=== PATIENT | male | born 1985 | race Caucasian/White ===

== ENCOUNTER 2017-02-28 04:15 | Emergency (ER) | payer OTHER ==
--- NOTE | ~2017-02-28 | CT4 ---
[facility] A Service of [facility] RADIOLOGY TEXT RESULTS PATIENT: ANNAMARIE BHARDWAJ LOCATION: SED : 87 UNIT #: [id number] AGE: [address]: King Mackey MD SEX: M ORDER DR: [id number] [place] [id number] E MR#: [id number] Acc #: [id number] NAME: ANNAMARIE BHARDWAJ : 1985 SEX: M STUDY DATE/TIME: 02/28/2017 6:32 UNIT: SED ROOM: STUDY DESCRIPTION: CT Abd and Pelv Wo Cont Attending Physician: King Mackey M.D. Ordering Physician: King Mackey M.D. Primary Care Physician: Tamiko Beavers M.D. MEDICAL IMAGING REPORT This report is preliminary unless electronic signature is present. EXAM C abdomen and pelvis without contrast HISTORY Nausea, vomiting and diarrhea since 2300 last night. No cancer history. History of ulcers. TECHNIQUE This CT examination was performed with one or more of the following radiation dose reduction techniques: automatic exposure control, adjustment of mA and/or kV according to patient size, and iterative reconstruction. COMMENT CT of the abdomen and pelvis performed axial plane without contrast followed by sagittal and coronal reconstructed images. There is comparison study from 05/03/2012. On review of prior study, patient has a contrast allergy. There is no abnormality at lung bases. Spleen size is borderline enlarged. Also probably some mild fatty infiltration of the liver diffusely. The noncontrast pancreas is unremarkable. Gallbladder, adrenal glands unremarkable. Mild perinephric stranding bilaterally. No intrarenal calculi. No hydronephrosis. Abdominal aorta unremarkable on noncontrast exam without evidence for aneurysm. Study does not evaluate for dissection. CT PELVIS: The urinary bladder is unremarkable. The appendix is radiographically normal. There is nothing to suggest bowel obstruction. There is no free intraperitoneal air. There is no drainable fluid collection suspected. [facility] A Service of [facility] RADIOLOGY TEXT RESULTS PATIENT: ANNAMARIE BHARDWAJ LOCATION: SED : 86 UNIT #: [id number] AGE: [address]: King Mackey MD SEX: M ORDER DR: IMPRESSION 1. Study limited by the lack of IV contrast media but the patient apparently has a contrast allergy. 2. Spleen size is borderline. Suspect mild fatty infiltration of the liver. Please correlate further with laboratory findings. 3. No evidence for bowel obstruction, free air or drainable fluid collection. The appendix is radiographically normal. STAT * RESULT Dictated by... Marzena Wray M.D. THIS IS AN ELECTRONICALLY VERIFIED REPORT Marzena Wray M.D. at 02/28/2017 8:35 AM IL[facility]/roxi TD: 02/28/2017 07:11 JOB #: [id number] MEDICAL IMAGING REPORT Page 1 of 1
[~2017-02-28 04:15] MED LIST: ALLEGRA180 MG PO; BENADRYL PO; BENADRYL25 M3 PO; BENADRYL25 MG; CLARITIN10 MG PO; DICYCLOMINE HCL20 MG PO; FAMOTIDINE PO; FISH OIL 1,0001 CAP PO; FLONASE 0.05% N16 G1; L-LYSINE500 M1 PO; LANSOPRAZOLE15 MG PO; LANSOPRAZOLE30 M1 PO; MED FOR ANXIETY; MELATONIN5 M1; MULTI VITAMIN1 EACH PO; MULTIVITAMIN1 UDCAP PO; NASONEX17 GM; OMEPRAZOLE20 M2; PHENERGAN PO; PREDNISONE; SLEEP MD; VOLTAREN75 MG PO
[2017-02-28 05:24] LABS: BASOPHIL# 0.1 X10e3 (0-0.3); BASOPHIL% 0.5 % (0-2.5); EOSINOPHIL# 0.1 X10e3 (0-0.7); EOSINOPHIL% 0.5 % (0.0-7.0); HEMATOCRIT 44.6 % (38.0-50.0); HEMOGLOBIN 15.2 gm/dL (13.0-16.0); LYMPHOCYTE# 1.3 X10e3 (1.0-3.5); LYMPHOCYTE% 6.1 % (17.0-45.0); MEAN CELL VOLUME 83.3 FL (83-96); MEAN CORPUSCULAR HEMOGLOBIN 28.4 PG (28-34); MEAN PLATELET VOLUME 8.4 FL (6.5-11.5); MONOCYTE# 1.1 X10e3 (0-1.0); MONOCYTE% 4.8 % (3.0-12.0); NEUTROPHIL# 19.3 X10e3 (1.5-7.1); NEUTROPHIL% 88.1 % (40-75); PLATELET COUNT 240 X10e3 (140-420); RED BLOOD COUNT 5.36 X10e (3.90-5.60); RED CELL DISTRIBUTION WIDTH 12.6 % (11.0-15.5); WHITE BLOOD COUNT 21.9 X10e3 (4.0-10.5)
[2017-02-28 05:28] LABS: DIFF IND YES
[2017-02-28 05:29] LABS: ALBUMIN SERUM 4.5 g/dL (3.5-5.0); BILIRUBIN, DIRECT 0.1 mg/dL (0.0-0.2); BILIRUBIN,INDIRECT 0.4 mg/dL (0.0-0.9); BILIRUBIN,TOTAL 0.5 mg/dL (0.2-2.0); CALCIUM SERUM 9.5 mg/dL (8.4-10.2); GLOM FILT RATE Estimated 100.6 mL/min (>60); POTASSIUM 3.8 mmol/L (3.5-5.1); PROTEIN TOTAL SERUM 7.7 g/dL (6.0-8.3)
[2017-02-28 05:46] LABS: DIFFERENTIAL COMMENT Y; PLATELET ESTIMATE NORMAL (NORMAL); VACUOLIZATION SL
== END 2017-02-28 09:14 | disposition home or self-care (01) ==
LOC: SED 04:15
PROVIDERS: Emergency Medicine
DX: K52.9 Noninfective gastroenteritis and colitis, unspecified (principal); F17.210 Nicotine dependence, cigarettes, uncomplicated; Z91.041 Radiographic dye allergy status; Z88.1 Allergy status to other antibiotic agents; Z91.013 Allergy to seafood
CPT/HCPCS: 36415; 74176; 80048; 80076; 83690; 85025; 96361; 96372; 96374; 96375; 99284; C9113; J0515; J0780; J1200; J2405

== ENCOUNTER 2017-03-28 12:06 | Emergency (ER) | payer OTHER ==
--- NOTE | ~2017-03-28 | EKG ---
PATIENT: ANNAMARIE BHARDWAJ UNIT #: [id number] Ventricular Rate: 73 BPM Atrial Rate: 73 BPM P-R Interval: 174 ms QRS Duration: 90 ms Q-T Interval: 372 ms QTC Calculation(Bezet): 409 ms P Callender: 31 degrees Calculated R Callender: 7 degrees Calculated T Callender: 48 degrees Diagnosis Line: Normal sinus rhythm Diagnosis Line: Minimal voltage criteria for LVH, may be normal Diagnosis Line: variant Diagnosis Line: Borderline ECG Diagnosis Line: When compared with ECG of 10-AUG-2016 12:26, Diagnosis Line: No significant change was found Diagnosis Line: Confirmed by NIALL MENDEZ MD ([id number]) on Diagnosis Line: 03/30/2017 8:51:04 AM INTERPRETING MD: VANESSA WIGGINS
--- NOTE | ~2017-03-28 | CR72 ---
[facility] A Service of [facility] RADIOLOGY TEXT RESULTS PATIENT: ANNAMARIE BHARDWAJ LOCATION: SED : 87 UNIT #: [id number] AGE: [address]: Carlos Manuel Flanagan MD SEX: M ORDER DR: [id number] [place] [id number] E MR#: [id number] Acc #: [id number] NAME: ANNAMARIE BHARDWAJ : 1985 SEX: M STUDY DATE/TIME: 03/28/2017 12:21 UNIT: SED ROOM: STUDY DESCRIPTION: CR Chest Single View Portable Attending Physician: Carlos Manuel Flanagan M.D. Ordering Physician: Carlos Manuel Flanagan M.D. Primary Care Physician: Tamiko Beavers M.D. MEDICAL IMAGING REPORT This report is preliminary unless electronic signature is present. EXAM AP portable chest 03/28/2017 HISTORY Right-side chest pain 30 minutes prior to arrival. No known injury. COMPARISON PA and lateral chest radiograph 02/25/2017 FINDINGS A single AP portable view of the chest shows both lungs to be clear. The heart is normal in size. The mediastinal contour is normal. No significant bone abnormalities are seen. IMPRESSION Normal portable chest. Dictated by... Coby Cardoza M.D. THIS IS AN ELECTRONICALLY VERIFIED REPORT Coby Cardoza M.D. at 03/31/2017 8:30 AM [facility]/ilda TD: 03/28/2017 13:46 JOB #: [id number] MEDICAL IMAGING REPORT Page 1 of 1
[2017-03-28] MEDS ORDERED: HERBAL MEDS (12:13)
[2017-03-28 12:59] LABS: BASOPHIL# 0.1 X10e3 (0-0.3); BASOPHIL% 0.7 % (0-2.5); EOSINOPHIL# 0.2 X10e3 (0-0.7); EOSINOPHIL% 2.7 % (0.0-7.0); HEMATOCRIT 42.7 % (38.0-50.0); HEMOGLOBIN 14.7 gm/dL (13.0-16.0); LYMPHOCYTE# 2.3 X10e3 (1.0-3.5); LYMPHOCYTE% 27.3 % (17.0-45.0); MEAN CELL VOLUME 83.1 FL (83-96); MEAN CORPUSCULAR HEMOGLOBIN 28.6 PG (28-34); MEAN CORPUSCULAR HGB CONC 34.5 g/dL (30-36); MEAN PLATELET VOLUME 8.9 FL (6.5-11.5); MONOCYTE# 0.5 X10e3 (0-1.0); MONOCYTE% 6.3 % (3.0-12.0); NEUTROPHIL# 5.3 X10e3 (1.5-7.1); PLATELET COUNT 182 X10e3 (140-420); RED BLOOD COUNT 5.14 X10e (3.90-5.60); RED CELL DISTRIBUTION WIDTH 13.1 % (11.0-15.5); WHITE BLOOD COUNT 8.4 X10e3 (4.0-10.5)
[2017-03-28 13:06] LABS: POC - CKMB <1.0 ng/mL (0.0-7.9); POC - TROPONIN <0.05 ng/mL (<=0.05)
[2017-03-28 13:11] LABS: DIFF IND NO
[2017-03-28 13:19] LABS: BUN/CREATININE RATIO 23.33; CALCIUM SERUM 9.2 mg/dL (8.4-10.2); CREATININE SERUM 0.6 mg/dL (0.6-1.4); POTASSIUM 3.9 mmol/L (3.5-5.1)
== END 2017-03-28 13:34 | disposition home or self-care (01) ==
LOC: SED 12:06
PROVIDERS: Emergency Medicine
DX: R07.9 Chest pain, unspecified (principal); Z91.041 Radiographic dye allergy status; Z91.013 Allergy to seafood; Z88.1 Allergy status to other antibiotic agents; Z79.899 Other long term (current) drug therapy
CPT/HCPCS: 36415; 71010; 80048; 82553; 84484; 85025; 93005; 99284